=== PATIENT | female | born 2000 | race Caucasian/White ===

== ENCOUNTER 2019-03-27 02:07 | Emergency (ER) | payer OTHER ==
[~2019-03-27] VITALS: Ht 170.1 cm; Wt 79.4 kg
--- NOTE | ~2019-03-27 | EKG ---
[place], [place] ELECTROCARDIOGRAM REPORT NAME: SHANKAR LEONE UNIT #: [id number] ROOM: DOCTOR: EPIPHANY DRAFT REPORT BIRTHDATE: [birth year] [facility] Test Date: 2019-03-27 Test Time: 03:17:17 Pat Name: SHANKAR LEONE Department: Room: Gender: F [employer] Player: Brenda Hodgson : 2000 Requested By: NIR MALDONADO Order Number: [id number] Reading MD: Ladan De Leon MD Measurements Intervals Bertrand Rate: 84 P: 40 VA: 180 QRS: 56 QRSD: 76 T: 38 QT: 358 QTc: 424 Interpretive Statements Sinus rhythm Normal ECG Electronically Signed On 04-01-2019 17:50:24 PDT by Ladan De Leon MD CM:EKGRPT:ELECTROCARDIOGRAM REPORT 0317 1750 NIR OLMSTEAD DRAFT REPORT NIR MALDONADO DO
[~2019-03-27 02:07] MED LIST: ATARAX25 MG PO; AUGMENTIN ES-6100 ML PO; CLARITIN5 MG/5 ML PO; PREDNICOT20 MG PO
[2019-03-27 03:30] LABS: BASO # 0.1 10*3/uL (0.0-0.1); BASO % 0.6 % (0.0-1.0); EOS # 0.3 10*3/uL (0.0-0.4); EOS % 3.5 % (1.0-4.0); HEMATOCRIT 37.2 % (37.0-47.0); HEMOGLOBIN 12.5 g/dl (12.0-16.0); LYMPH # 2.8 10*3/uL (1.3-4.4); LYMPH % 34.6 % (27.0-41.0); MEAN CELL VOLUME 89.9 fl (81.0-99.0); MEAN CORPUSCULAR HGB 30.2 pg (27.0-31.0); MEAN CORPUSCULAR HGB CONC 33.6 g/dl (33.0-37.0); MEAN PLATELET VOLUME 10.8 fl (9.6-12.3); MONO # 0.6 10*3/uL (0.1-1.0); MONO % 7.5 % (3.0-9.0); NEUT # 4.4 10*3/uL (2.3-7.9); NEUT % 53.8 % (47.0-73.0); PLATELET COUNT AUTOMATED 238 10*3/uL (130-400); RED BLOOD COUNT 4.14 10*6/uL (4.10-5.10); RED CELL DISTRI WIDTH 12.5 % (0-14.5); WHITE BLOOD COUNT 8.2 10*3/uL (4.8-10.8)
[2019-03-27 03:47] LABS: ALKALINE PHOSPHATASE 93 U/L (45-117); BUN 17 mg/dl (7-24); CHLORIDE 108 mmol/L (98-107); CREATININE 0.93 mg/dL (0.55-1.02); POTASSIUM 3.8 mmol/L (3.5-5.1); SGOT/AST 12 IU/L (3-35); SGPT/ALT 18 U/L (12-78); SODIUM 139 mmol/L (136-145); TOTAL PROTEIN 7.8 gm/dL (6.4-8.2)
[2019-03-27 03:51] LABS: TROPONIN I < 0.015 ng/ml (<0.045)
[2019-03-27 04:39] LABS: BILIRUBIN NEGATIVE (NEGATIVE); BLOOD NEGATIVE (NEGATIVE); CLARITY SL CLOUDY (CLEAR); COLOR YELLOW (YELLOW); GLUCOSE NEGATIVE (NEGATIVE); KETONE NEGATIVE (NEGATIVE); LEUKO ESTERASE NEGATIVE (NEGATIVE); NITRITE NEGATIVE (NEGATIVE); PH 7.5 (5.0-9.0); SPECIFIC GRAVITY 1.015 (1.005-1.030); UROBILINOGEN 0.2 E.U./dl (0.2-1.0)
[2019-03-27 04:44] LABS: EPITHELIAL CELLS 0-2; WBC 0-2 wbc/hpf (0-5)
[2019-03-27 04:45] LABS: BACTERIA 4+
== END 2019-03-27 05:04 | disposition home or self-care (01) ==
LOC: ED 02:07
PROVIDERS: Emergency Medicine
DX: R07.89 Other chest pain (principal); R06.02 Shortness of breath